=== PATIENT | female | born 1940 | race Caucasian/White ===

== ENCOUNTER 2019-05-05 12:07 | Emergency (ER) | payer MEDICARE, OTHER ==
--- NOTE | 2019-05-05 13:19 | Emergency Department Record ---
History of Present Illness - General Chief complaint: Abscess Stated complaint: CYST Time Seen by Provider: 05/05/19 12:50 Source: Patient, RN notes reviewed Mode of Arrival: Ambulatory - History of Present Illness Initial comments: left side vaginal pain and swelling Onset/Timin -: Days(s) Location: Genitals Severity: Moderate Severity scale (1-10): 8 Quality: Sharp, Stabbing Consistency: Constant, Intermittent Improves with: None Worsens with: Palpation, Movement Context: None Associated symptoms: Denies other symptoms Treatments Prior to Arrival: None - Related Data Home Medications Medication Instructions Recorded Confirmed Last Taken Amlodipine Besylate [Norvasc] 10 mg PO DAILY 05/05/19 05/05/19 05/05/19 Atenolol [Tenormin] 25 mg PO DAILY 05/05/19 05/05/19 05/05/19 Rosuvastatin Calcium [Crestor] 5 mg PO WEEKLY 05/05/19 05/05/19 05/03/19 Previous Rx's Medication Instructions Recorded Cephalexin [Keflex] 500 mg PO QID #40 cap 05/05/19 Hydrocodone/Acetaminophen [[place] 1 each PO Q6HR #12 tablet 05/05/19 5-325 Tablet] Sulfamethoxazole/Trimethoprim 1 each PO BID #20 tablet 05/05/19 [Bactrim Ds Tablet] Allergies Allergy/AdvReac Type Severity Reaction Status Date / Time Penicillins Allergy RASH Verified 05/05/19 12:41 Travel Screening - Travel/Exposure Within Last 30 Days Have you traveled within the last 30 days?: Yes Location Detail:: [place], [place], [facility] - Travel/Exposure Within Last Year Have you traveled outside the [place] in the last year?: Yes Location Detail:: [place] - Additonal Travel Details Have you been exposed to anyone with a communicable illness?: No - Travel Symptoms Symptom Screening: None Review of Systems Reviewed: No additional complaints except as noted below Constitutional: Reports: As per HPI. Denies: Chills, Fever, Malaise, Night sweats, Weakness, Weight change Eyes: Reports: As per HPI. Denies: Eye discharge, Eye pain, Photophobia, Vision change ENT: Reports: As per HPI. Denies: Congestion, Dental pain, Ear pain, Epistaxis, Hearing loss, Throat pain Respiratory: Reports: As per HPI. Denies: Cough, Dyspnea, Hemoptysis, Stridor, Wheezes Cardiovascular: Reports: As per HPI. Denies: Arrhythmia, Chest pain, Dyspnea on exertion, Edema, Murmurs, Orthopnea, Palpitations, Paroxysmal nocturnal dyspnea, Rheumatic Fever, Syncope Endocrine: Reports: As per HPI. Denies: Fatigue, Heat or cold intolerance, Polydipsia, Polyuria Gastrointestinal: Reports: As per HPI. Denies: Abdominal pain, Constipation, Diarrhea, Hematemesis, Hematochezia, Melena, Nausea, Vomiting Genitourinary: Reports: As per HPI, Other (painfull left vaginal area). Denies: Abnormal menses, Discharge, Dyspareunia, Dysuria, Frequency, Hematuria, Incontinence, Retention, Urgency Musculoskeletal: Reports: As per HPI. Denies: Arthralgia, Back pain, Gout, Joint swelling, Myalgia, Neck pain Skin: Reports: As per HPI. Denies: Bruising, Change in color, Change in hair/nails, Lesions, Pruritus, Rash Neurological: Reports: As per HPI. Denies: Abnormal gait, Confusion, Headache, Numbness, Paresthesias, Seizure, Tingling, Tremors, Vertigo, Weakness Psychiatric: Reports: As per HPI. Denies: Anxiety, Auditory hallucinations, Depression, Homicidal thoughts, Suicidal thoughts, Visual hallucinations Hematological/Lymphatic: Reports: As per HPI. Denies: Anemia, Blood Clots, Easy bleeding, Easy bruising, Swollen glands Past Medical History - SOCIAL HISTORY Smoking Status: Never smoker Alcohol Use: Occasional Drug Use: None - RESPIRATORY Hx Respiratory Disorders: No - CARDIOVASCULAR Hx Cardio Disorders: Yes Hx Hypertension: Yes Comment:: high cholesterol - NEURO Hx Neuro Disorders: No - GI Hx GI Disorders: No - Hx Genitourinary Disorders: No - ENDOCRINE Hx Endocrine Disorders: No - MUSCULOSKELETAL Hx Musculoskeletal Disorders: No - PSYCH Hx Psych Problems: No - HEMATOLOGY/ONCOLOGY Hx Hematology/Oncology Disorders: No Family Medical History Any Significant Family History?: Yes Hx Cancer: Children Physical Exam - General General Appearance: Alert, Oriented x3, Cooperative, No acute distress - Head Head exam: Normal inspection - Eye Eye exam: Normal appearance, PERRL Pupils: Normal accommodation - ENT ENT exam: Normal exam, Mucous membranes moist, Normal external ear exam, Normal orophraynx, TM's normal bilaterally Ear exam: Normal external inspection. negative: External canal tenderness Nasal Exam: Normal inspection. negative: Discharge, Sinus tenderness Mouth exam: Normal external inspection, Tongue normal Teeth exam: Normal inspection. negative: Dental caries Throat exam: Normal inspection. negative: Tonsillar erythema, Tonsillar exudate - Neck Neck exam: Normal inspection, Full ROM. negative: Tenderness - Respiratory Respiratory exam: Normal lung sounds bilaterally. negative: Respiratory distress - Cardiovascular Cardiovascular Exam: Regular rate, Normal rhythm, Normal heart sounds - GI/Abdominal GI/Abdominal exam: Soft, Normal bowel sounds. negative: Tenderness - Rectal Rectal exam: Deferred - exam: Other (left vaginal pain and swelling) - Extremities Extremities exam: Normal inspection, Full ROM, Normal capillary refill. negative: Tenderness - Back Back exam: Reports: Normal inspection, Full ROM. Denies: Muscle spasm, Rash noted, Tenderness - Neurological Neurological exam: Alert, Normal gait, Oriented X3, Reflexes normal - Psychiatric Psychiatric exam: Normal affect, Normal mood - Skin Skin exam: Dry, Intact, Normal color, Warm Course Vital Signs 05/05/19 12:45 Temperature 98 F Pulse Rate 74 Respiratory 20 Rate Blood Pressure 154/70 Pulse Ox 95 Disposition Clinical Impression: Abscess of vagina Disposition: Home, Self-Care Condition: (1) Good Instructions: Abscess Incision and Drainage (ED), Abscess (ED) Additional Instructions: recheck in ED in 2 days to remove packing and to reevaluate mild pain use tylenol and for severe pain use norco Prescriptions: Hydrocodone/Acetaminophen [[place] 5-325 Tablet] 1 each PO Q6HR #12 tablet Sulfamethoxazole/Trimethoprim [Bactrim Ds Tablet] 1 each PO BID #20 tablet Cephalexin [Keflex] 500 mg PO QID #40 cap Forms: Patient Portal Access Time of Disposition: 16:49 Quality - Quality Measures Quality Measures: N/A - Blood Pressure Screening Does Patient Have Any of the Following: No, Active Dx of HTN Blood Pressure Classification: Hypertensive Reading Systolic Measurement: 154 Diastolic Measurement: 70 Screening for High Blood Pressure: Patient Exclusion, Hx of HTN [G9744]
[2019-05-05] MEDS ORDERED: HYDROMORPHONE HCL 2 MG/ML VIAL IVP ONE (15:26)
[2019-05-05] MEDS ORDERED: ONDANSETRON HCL IV 4 MG/2 ML VIAL IVP ONE (15:27)
[2019-05-05] MEDS ORDERED: TMP/SMZ 160MG/800MG TAB PO ONE (16:43)
[2019-05-05] MEDS ORDERED: CEFTRIAXONE SODIUM 1 GM in 0.9 % SODIUM CHLORIDE 100ML 100 ML IVPB ONE (16:43)
== END 2019-05-05 17:50 | disposition home or self-care (01) ==
LOC: ER 12:07
DX: N76.0 Acute vaginitis (principal); I10 Essential (primary) hypertension
CPT/HCPCS: 99284 ×2; 96365; 96375; J2405; J1170; J3490

== ENCOUNTER 2019-05-07 07:57 | Emergency (ER) | payer MEDICARE, OTHER ==
--- NOTE | 2019-05-07 08:11 | Emergency Department Record ---
History of Present Illness - General Chief Complaint: Recheck - Other Stated Complaint: RECHECK ABCESS Time Seen by Provider: 05/07/19 07:59 Source: Patient Mode of arrival: Ambulatory Limitations: No limitations - History of Present Illness Initial Comments: The patient is here for recheck of her L vaginal abscess. She states she is doing very well and the area is feeling a lot better. She also states the packing did fall out at home. There is no hx of fever, chills, dysuria, or AP. MD Complaint: Wound re-check Onset/Timin -: Days(s) Initial Visit For: Abscess Returns Today for: Wound recheck Symptoms Since Prior Visit: No new symptoms Associated Symptoms: None - Related Data Previous Rx's Medication Instructions Recorded Cephalexin [Keflex] 500 mg PO QID #40 cap 05/05/19 Hydrocodone/Acetaminophen [[place] 1 each PO Q6HR #12 tablet 05/05/19 5-325 Tablet] Sulfamethoxazole/Trimethoprim 1 each PO BID #20 tablet 05/05/19 [Bactrim Ds Tablet] Allergies Allergy/AdvReac Type Severity Reaction Status Date / Time Penicillins Allergy RASH Verified 05/07/19 08:00 Travel Screening - Travel/Exposure Within Last 30 Days Have you traveled within the last 30 days?: Yes Location Detail:: [place] - Travel Symptoms Symptom Screening: None Review of Systems Constitutional: Denies: Chills, Fever Past Medical History - SOCIAL HISTORY Smoking Status: Never smoker Alcohol Use: None Drug Use: None - RESPIRATORY Hx Respiratory Disorders: No - CARDIOVASCULAR Hx Cardio Disorders: Yes Hx Hypertension: Yes Comment:: high cholesterol - NEURO Hx Neuro Disorders: No - GI Hx GI Disorders: No - Hx Genitourinary Disorders: No - ENDOCRINE Hx Endocrine Disorders: No - MUSCULOSKELETAL Hx Musculoskeletal Disorders: No - PSYCH Hx Psych Problems: No - HEMATOLOGY/ONCOLOGY Hx Hematology/Oncology Disorders: No Family Medical History Any Significant Family History?: Yes Hx Cancer: Children Physical Exam - General General Appearance: Alert, Oriented x3, Cooperative, No acute distress - Head Head exam: Atraumatic - Eye Eye exam: Normal appearance - Neck Neck exam: Normal inspection - GI/Abdominal GI/Abdominal exam: Soft. negative: Guarding, Rebound, Rigid, Tenderness - exam: Normal external exam, Other (The L sided vaginal abscess has resolved and there is no swelling or tenderness.). negative: Abnormal external exam, Vaginal erythema - Extremities Extremities exam: Normal inspection - Neurological Neurological exam: Alert. negative: Motor sensory deficit Course Vital Signs 05/07/19 08:01 Temperature 98.1 F Pulse Rate 72 Respiratory 20 Rate Blood Pressure 153/76 Pulse Ox 96 - Reevaluation(s) Reevaluation #1: The patient is encouraged to continue her present medicines and to see her PCP next week as planned. 05/07/19 08:14 Disposition Disposition: Discharge Clinical Impression: Abscess of vagina Disposition: Home, Self-Care Condition: (2) Stable Instructions: Wound Infection (ED) Additional Instructions: Please continue your antibiotics and keep the appointment with your doctor for next week. Return to the ER for any worsening issues. Forms: Patient Portal Access Time of Disposition: 08:11 Quality - Quality Measures Quality Measures: N/A - Blood Pressure Screening View Details: Yes Does Patient Have Any of the Following: No Blood Pressure Classification: Hypertensive Reading Systolic Measurement: 153 Diastolic Measurement: 76 Screening for High Blood Pressure: < First Hypertensive BP, F/U Documented > [G8950] First Hypertensive Follow-up Interventions: Referral to alternative/primary care provider.
== END 2019-05-07 08:22 | disposition home or self-care (01) ==
LOC: ER 07:57
DX: N76.0 Acute vaginitis (principal)
CPT/HCPCS: 99282